=== PATIENT | male | born 1955 | race Two or more races ===

== ENCOUNTER 2021-07-17 17:35 | Inpatient (IN) | payer MEDICARE, MEDICAID ==
[~2021-07-17] VITALS: Ht 175.3 cm; Wt 97.2 kg
[2021-07-17 20:20] LABS: Basophils # (auto) 0 10 ^3/uL (0-0.2); Eosinophils # (auto) 0 10 ^3/uL (0-0.8); Hemoglobin 13.8 g/dL (13.5-17.5); Lymphocytes % (auto) 5.1 % (10.0-50.0); Monocytes # (auto) 0.6 10 ^3/uL (0-1.3); White Blood Cell 14.7 10^3/uL (4.4-10.8)
[2021-07-17 20:22] LABS: Basophils % (auto) 0.2 % (0.0-2.0); Hematocrit 41.8 % (41.0-53.0); Lymphocytes # (auto) 0.7 10 ^3/uL (0.4-5.4); Mean Corpuscular Hemoglobin 34.6 pg (28.0-32.0); Mean Corpuscular Hgb Conc. 33.1 g/dL (32.0-36.0); Mean Corpuscular Volume 104.7 fL (80.0-100.0); Monocytes % (auto) 3.9 % (0.0-12.0); Neutrophils # (auto) 13.4 10 ^3/uL (1.6-8.6); Neutrophils % (auto) 90.8 % (37.0-80.0); Red Blood Cells 3.99 10^6/uL (4.5-5.90); Red Cell Distribution Width 15.4 % (11.8-14.3)
[2021-07-17 20:38] LABS: Albumin 2.8 g/dL (3.4-5.0); Calcium 7.6 mg/dL (8.5-10.1); Potassium 4.6 mmol/L (3.5-5.1)
[2021-07-17 20:41] LABS: Lactic Acid w/Reflex 4.3 mmol/L (0.4-2.0)
[2021-07-17 20:42] LABS: BUN/Creatinine Ratio 10.2; Bilirubin, Total 2.5 mg/dL (0.2-1.0); Total Protein 6.5 g/dL (6.4-8.2)
[2021-07-18] MEDS ORDERED: SODIUM CHLORIDE 0.9% 1,000 ML IV ONE (01:30)
[2021-07-18] MEDS ORDERED: KETOROLAC TROMETH 30 MG/ML 1ML VIAL IV ONE (01:30)
[2021-07-18 04:30] LABS: Urine Bacteria FEW /hpf (None Seen); Urine Blood 1+ /uL (Negative); Urine Hyaline Cast MOD /lpf (0 - 2); Urine Mucus FEW (None Seen); Urine WBC 14 /hpf (0 - 3)
[2021-07-18] MEDS ORDERED: ALBUMIN 25% 100 ML IV ONE (04:45)
[2021-07-18] MEDS ORDERED: MORPHINE SULFATE 4 MG/ML SYR/VIAL IV PRN (04:45)
[2021-07-18] MEDS ORDERED: ACETAMINOPHEN 325 MG TAB PO PRN (04:45)
[2021-07-18] MEDS: SODIUM CHLORIDE 0.9% 1,000 ML IV SCH ×2 (04:45→21:49)
[2021-07-18] MEDS ORDERED: ONDANSETRON HCL 4 MG/2 ML VIAL IV PRN (04:45)
[2021-07-18] MEDS ORDERED: DOCUSATE SOD 100 MG CAP PO PRN (04:45)
[2021-07-18] MEDS ORDERED: NITROGLYCERIN 0.4 MG SL TAB SL PRN (05:30)
[2021-07-18] MEDS ORDERED: MORPHINE SULFATE INJECTION 2 MG/ML SYRG IV PRN (05:30)
[2021-07-18] MEDS: metroNIDAZOLE 500MG/100ML 100 ML IV SCH ×3 (05:37→21:49)
[2021-07-18] MEDS: cefTRIAXone 1GM/50ML D5W 50 ML IV SCH (08:49)
[2021-07-18 09:03] LABS: Basophils # (auto) 0 10 ^3/uL (0-0.2); Eosinophils # (auto) 0 10 ^3/uL (0-0.8); Hematocrit 31.2 % (41.0-53.0); Monocytes # (auto) 0.2 10 ^3/uL (0-1.3)
[2021-07-18 09:05] LABS: Basophils % (auto) 0.2 % (0.0-2.0); Eosinophils % (auto) 0.2 % (0.0-7.0); Hemoglobin 10.5 g/dL (13.5-17.5); Lymphocytes # (auto) 0.5 10 ^3/uL (0.4-5.4); Lymphocytes % (auto) 8.1 % (10.0-50.0); Mean Corpuscular Hemoglobin 35.3 pg (28.0-32.0); Mean Corpuscular Hgb Conc. 33.7 g/dL (32.0-36.0); Mean Corpuscular Volume 104.8 fL (80.0-100.0); Monocytes % (auto) 2.9 % (0.0-12.0); Neutrophils # (auto) 5.3 10 ^3/uL (1.6-8.6); Neutrophils % (auto) 88.6 % (37.0-80.0); Red Blood Cells 2.97 10^6/uL (4.5-5.90); Red Cell Distribution Width 15.3 % (11.8-14.3)
[2021-07-18] MEDS: ASPirin 81 mg TAB PO SCH (10:58)
[2021-07-18] MEDS: FAMOTIDINE (10MG/ML) 2ML VL IV SCH (10:58)
[2021-07-18] MEDS: HYDROcodone-ACET 5/325MG TAB PO PRN ×2 (11:26→21:09)
[2021-07-18 11:58] LABS: Alanine Aminotransferase 33 U/L (16-61); Alkaline Phosphatase 145 U/L (45-117); Anion Gap 9 (5-15); Aspartate Aminotransferase 37 U/L (15-37); BUN/Creatinine Ratio 12.4; Bilirubin, Total 1.4 mg/dL (0.2-1.0); Blood Urea Nitrogen 26 mg/dL (7-18); Calcium 7.2 mg/dL (8.5-10.1); Carbon Dioxide 21 mmol/L (21-32); Chloride 105 mmol/L (98-107); GFR African American 41 mL/min; GFR Non-African American 34 mL/min; Glucose 108 mg/dL (74-106); Potassium 4.2 mmol/L (3.5-5.1); Sodium 135 mmol/L (136-145)
[2021-07-18 11:59] LABS: Albumin 2.3 g/dL (3.4-5.0); Total Protein 6.1 g/dL (6.4-8.2)
[2021-07-18 16:40] VITALS: BP 98/58
[2021-07-18 17:00] VITALS: BP 98/68
[2021-07-18 20:00] VITALS: BP 116/70
[2021-07-18 22:09] LABS: Urine Bacteria FEW /hpf (None Seen); Urine Blood 1+ /uL (Negative); Urine WBC 9 /hpf (0 - 3)
[2021-07-18 23:15] LABS: Protein, Urine 52.5 mg/dL (0.0-11.9)
[2021-07-19 05:00] VITALS: BP 127/79
[2021-07-19 06:20] LABS: Basophils # (auto) 0 10 ^3/uL (0-0.2); Basophils % (auto) 0.1 % (0.0-2.0); Hemoglobin 10.5 g/dL (13.5-17.5); Lymphocytes # (auto) 0.4 10 ^3/uL (0.4-5.4); Monocytes # (auto) 0.3 10 ^3/uL (0-1.3); Neutrophils # (auto) 3.6 10 ^3/uL (1.6-8.6); Neutrophils % (auto) 82.5 % (37.0-80.0)
[2021-07-19] MEDS: metroNIDAZOLE 500MG/100ML 100 ML IV SCH (06:23)
[2021-07-19 06:24] LABS: Eosinophils # (auto) 0 10 ^3/uL (0-0.8); Hematocrit 30.4 % (41.0-53.0); Lymphocytes % (auto) 9.8 % (10.0-50.0); Mean Corpuscular Hgb Conc. 34.6 g/dL (32.0-36.0); Mean Corpuscular Volume 104.2 fL (80.0-100.0); Monocytes % (auto) 6.6 % (0.0-12.0); Red Blood Cells 2.91 10^6/uL (4.5-5.90); White Blood Cell 4.4 10^3/uL (4.4-10.8)
[2021-07-19 09:00] VITALS: BP 107/66
[2021-07-19 09:55] LABS: Albumin 2.1 g/dL (3.4-5.0); BUN/Creatinine Ratio 15.9; Calcium 7.2 mg/dL (8.5-10.1)
[2021-07-19 09:58] LABS: Bilirubin, Total 0.6 mg/dL (0.2-1.0); Total Protein 4.8 g/dL (6.4-8.2)
[2021-07-19] MEDS: FAMOTIDINE (10MG/ML) 2ML VL IV SCH (10:02)
[2021-07-19] MEDS: cefTRIAXone 1GM/50ML D5W 50 ML IV SCH (10:02)
[2021-07-19] MEDS: ASPirin 81 mg TAB PO SCH (10:03)
[2021-07-19] MEDS: HYDROcodone-ACET 5/325MG TAB PO PRN ×3 (10:03→23:55)
[2021-07-19 13:00] VITALS: BP 98/65
[2021-07-19 17:00] VITALS: BP 106/65
[2021-07-19] MEDS: SODIUM CHLORIDE 0.9% 1,000 ML IV SCH ×2 (18:02→19:43)
[2021-07-19 20:00] VITALS: BP 96/60
[2021-07-19 22:00] VITALS: BP 96/60
[2021-07-20] VITALS (7 sets, daily range): BP systolic 91–108; BP diastolic 60–71
[2021-07-20 06:58] LABS: Basophils # (auto) 0 10 ^3/uL (0-0.2); Basophils % (auto) 0.2 % (0.0-2.0); Eosinophils # (auto) 0.1 10 ^3/uL (0-0.8); Lymphocytes # (auto) 0.6 10 ^3/uL (0.4-5.4); Monocytes # (auto) 0.4 10 ^3/uL (0-1.3); Neutrophils # (auto) 2.6 10 ^3/uL (1.6-8.6); White Blood Cell 3.7 10^3/uL (4.4-10.8)
[2021-07-20 07:08] LABS: Eosinophils % (auto) 2.2 % (0.0-7.0); Hematocrit 31.8 % (41.0-53.0); Hemoglobin 10.9 g/dL (13.5-17.5); Lymphocytes % (auto) 16.6 % (10.0-50.0); Mean Corpuscular Hemoglobin 35.4 pg (28.0-32.0); Mean Corpuscular Hgb Conc. 34.4 g/dL (32.0-36.0); Mean Corpuscular Volume 102.9 fL (80.0-100.0); Monocytes % (auto) 11.3 % (0.0-12.0); Neutrophils % (auto) 69.7 % (37.0-80.0); Nucleated Red Blood Cells % 0.1 %; Red Blood Cells 3.09 10^6/uL (4.5-5.90); Red Cell Distribution Width 15.2 % (11.8-14.3)
[2021-07-20 07:09] LABS: Calcium 7.1 mg/dL (8.5-10.1); Potassium 3.1 mmol/L (3.5-5.1)
[2021-07-20 07:13] LABS: BUN/Creatinine Ratio 19.1; Bilirubin, Total 0.5 mg/dL (0.2-1.0); Total Protein 4.8 g/dL (6.4-8.2)
[2021-07-20 07:19] LABS: % Iron Saturation 15.7 % (20-55)
[2021-07-20 07:39] LABS: Ferritin 883.2 ng/mL (10-322)
[2021-07-20] MEDS ORDERED: POTASSIUM CHL 20 Meq TABLET PO ONE (09:15)
[2021-07-20] MEDS: FAMOTIDINE (10MG/ML) 2ML VL IV SCH (10:04)
[2021-07-20] MEDS: cefTRIAXone 1GM/50ML D5W 50 ML IV SCH (10:04)
[2021-07-20] MEDS: ASPirin 81 mg TAB PO SCH (10:04)
[2021-07-20] MEDS: HYDROcodone-ACET 5/325MG TAB PO PRN ×2 (10:04→19:50)
[2021-07-20] MEDS: SODIUM CHLORIDE 0.9% 1,000 ML IV SCH (23:25)
[2021-07-21] MEDS: SODIUM CHLORIDE 0.9% 1,000 ML IV SCH (03:10)
[2021-07-21 05:24] VITALS: BP 110/71
[2021-07-21 08:00] VITALS: BP 125/77
[2021-07-21 09:03] LABS: BUN/Creatinine Ratio 17.2; Calcium 7.4 mg/dL (8.5-10.1)
[2021-07-21 09:05] LABS: Potassium 3.9 mmol/L (3.5-5.1)
[2021-07-21] MEDS: ASPirin 81 mg TAB PO SCH (09:36)
[2021-07-21] MEDS: FAMOTIDINE (10MG/ML) 2ML VL IV SCH (09:36)
[2021-07-21] MEDS: cefTRIAXone 1GM/50ML D5W 50 ML IV SCH (09:36)
[2021-07-21] MEDS: HYDROcodone-ACET 5/325MG TAB PO PRN (09:38)
[2021-07-21 12:00] VITALS: BP 100/62
[2021-07-21 13:33] LABS: Hepatitis B Core IgM Negative
[2021-07-21 13:34] LABS: Hepatitis C Antibody Negative (Negative)
[2021-07-24 13:56] LABS: Hepatitis A Ab IgM Negative
== END 2021-07-21 14:40 | disposition home or self-care (01) | DRG 693 ==
LOC: EDBD 17:35 → ER 17:35 → OVERFLOW 07-18 05:16 → WEST WING 07-18 15:06
PROVIDERS: ADMIT Nurse Practitioner Family; ATTEND Internal Medicine Geriatric Medicine
DX: N20.0 Calculus of kidney (principal); N17.0 Acute kidney failure with tubular necrosis; N39.0 Urinary tract infection, site not specified; R78.81 Bacteremia; E44.1 Mild protein-calorie malnutrition; E87.1 Hypo-osmolality and hyponatremia; D69.6 Thrombocytopenia, unspecified; E88.09 Other disorders of plasma-protein metabolism, not elsewhere classified; T39.395A Adverse effect of other nonsteroidal anti-inflammatory drugs [NSAID], initial encounter; N18.30 Chronic kidney disease, stage 3 unspecified; B96.89 Other specified bacterial agents as the cause of diseases classified elsewhere; Z20.822 Contact with and (suspected) exposure to COVID-19; B96.20 Unspecified Escherichia coli [E. coli] as the cause of diseases classified elsewhere; G89.29 Other chronic pain; Z96.659 Presence of unspecified artificial knee joint; Z98.1 Arthrodesis status; Z98.84 Bariatric surgery status; Z90.49 Acquired absence of other specified parts of digestive tract; Y92.89 Other specified places as the place of occurrence of the external cause; Z68.29 Body mass index [BMI] 29.0-29.9, adult
CPT/HCPCS: 36415; 74176; 76775; 80048; 80053; 80074; 81001; 82570; 82607; 82728; 83010; 83036; 83540; 83550; 83605; 83615; 84156; 84300; 84436; 84443; 84484; 85025; 85045; 86880; 87040; 87077; 87086; 87186; 87426; 93005; 96361; 96365; 96375; G0378; J0696; J1885; J3490; P9047

== ENCOUNTER 2022-01-30 15:01 | Inpatient (IN) | payer OTHER, MEDICAID ==
[~2022-01-30] VITALS: Ht 177.8 cm; Wt 105.0 kg
[2022-01-30 15:35] LABS: Basophils # (auto) 0.1 10 ^3/uL (0-0.2); Eosinophils # (auto) 0 10 ^3/uL (0-0.8); Eosinophils % (auto) 0.2 % (0.0-7.0); Hematocrit 28.6 % (41.0-53.0); Hemoglobin 9.9 g/dL (13.5-17.5); Lymphocytes # (auto) 1.5 10 ^3/uL (0.4-5.4); Lymphocytes % (auto) 19.5 % (10.0-50.0); Mean Corpuscular Hemoglobin 33.7 pg (28.0-32.0); Mean Corpuscular Hgb Conc. 34.5 g/dL (32.0-36.0); Mean Corpuscular Volume 97.8 fL (80.0-100.0); Monocytes # (auto) 0.6 10 ^3/uL (0-1.3); Monocytes % (auto) 8.2 % (0.0-12.0); Neutrophils # (auto) 5.5 10 ^3/uL (1.6-8.6); Neutrophils % (auto) 71.1 % (37.0-80.0); Nucleated Red Blood Cells % 0.1 %; Red Blood Cells 2.92 10^6/uL (4.5-5.90); Red Cell Distribution Width 16.8 % (11.8-14.3); White Blood Cell 7.7 10^3/uL (4.4-10.8)
[2022-01-30] MEDS ORDERED: SODIUM CHLORIDE 0.9% 1,000 ML IV ONE ×2 (15:45→19:15)
[2022-01-30 15:51] LABS: INR 1.11 (0.9-1.15); Partial Thromboplastin Time 27.1 sec (23.6-33.0)
[2022-01-30 15:53] LABS: Albumin 2.1 g/dL (3.4-5.0); Calcium 7.7 mg/dL (8.5-10.1)
[2022-01-30 15:56] LABS: BUN/Creatinine Ratio 10.3; Bilirubin, Total 0.9 mg/dL (0.2-1.0)
[2022-01-30 16:12] LABS: Potassium 2.8 mmol/L (3.5-5.1)
[2022-01-30] MEDS ORDERED: POTASSIUM CHL 20MEQ/100ML 100 ML IV ONE (17:00)
[2022-01-30] MEDS ORDERED: POTASSIUM CHL 20 Meq TABLET PO ONE (17:00)
[2022-01-30] MEDS ORDERED: HEPARIN SODIUM (PORCINE) 5000 UNITS/ML 1ML VIAL SC ONE (22:45)
[2022-01-30] MEDS ORDERED: ONDANSETRON HCL 4 MG/2 ML VIAL IV PRN (22:45)
[2022-01-30] MEDS ORDERED: HYDROcodone-ACET 5/325MG TAB PO PRN (22:45)
[2022-01-30] MEDS ORDERED: DOCUSATE SOD 100 MG CAP PO PRN (22:45)
[2022-01-30] MEDS ORDERED: ACETAMINOPHEN 325 MG TAB PO PRN (22:45)
[2022-01-30] MEDS ORDERED: NITROGLYCERIN 0.4 MG SL TAB SL PRN (23:30)
[2022-01-30] MEDS ORDERED: MORPHINE SULFATE INJ 2 MG/ml SYRG IV PRN (23:30)
[2022-01-30] MEDS: ALBUMIN 25% 50 ML IV SCH (23:55)
[2022-01-30] MEDS: SODIUM CHLORIDE 0.9% 1,000 ML IV SCH (23:57)
[2022-01-31 01:48] VITALS: BP 93/62
[2022-01-31 03:53] LABS: Urine Bacteria NONE SEEN /hpf (None Seen); Urine Blood Negative /uL (Negative); Urine Hyaline Cast FEW /lpf (0 - 2); Urine Specific Gravity 1.021 (1.001-1.035); Urine WBC 4 /hpf (0 - 3)
[2022-01-31 05:00] VITALS: BP 90/59
[2022-01-31] MEDS ORDERED: VANCOMYCIN PER PHARMACY 0 MG IV SCH (05:30)
[2022-01-31] MEDS ORDERED: VANCOMYCIN 1GM/250ML 250 ML IV ONE (05:30)
[2022-01-31] MEDS ORDERED: HEPARIN SODIUM (PORCINE) 5000 UNITS/ML 1ML VIAL SC SCH (06:00)
[2022-01-31] MEDS: ALBUMIN 25% 50 ML IV SCH (06:38)
[2022-01-31 07:37] LABS: Basophils # (auto) 0 10 ^3/uL (0-0.2); Basophils % (auto) 0.3 % (0.0-2.0); Eosinophils # (auto) 0 10 ^3/uL (0-0.8); Eosinophils % (auto) 0.7 % (0.0-7.0); Hematocrit 23.2 % (41.0-53.0); Hemoglobin 8.1 g/dL (13.5-17.5); Lymphocytes # (auto) 1.4 10 ^3/uL (0.4-5.4); Lymphocytes % (auto) 22.9 % (10.0-50.0); Mean Corpuscular Hemoglobin 34.4 pg (28.0-32.0); Mean Corpuscular Hgb Conc. 34.9 g/dL (32.0-36.0); Mean Corpuscular Volume 98.5 fL (80.0-100.0); Monocytes # (auto) 0.5 10 ^3/uL (0-1.3); Neutrophils # (auto) 4.2 10 ^3/uL (1.6-8.6); Neutrophils % (auto) 68.1 % (37.0-80.0); Nucleated Red Blood Cells % 0.1 %; Red Blood Cells 2.36 10^6/uL (4.5-5.90); Red Cell Distribution Width 16.2 % (11.8-14.3); White Blood Cell 6.2 10^3/uL (4.4-10.8)
[2022-01-31 07:43] LABS: Albumin 2.1 g/dL (3.4-5.0); BUN/Creatinine Ratio 11.1; Calcium 7.5 mg/dL (8.5-10.1)
[2022-01-31 07:46] LABS: Bilirubin, Total 0.9 mg/dL (0.2-1.0); Total Protein 5.2 g/dL (6.4-8.2)
[2022-01-31 07:56] LABS: Potassium 2.9 mmol/L (3.5-5.1)
[2022-01-31 09:00] VITALS: BP 88/58
[2022-01-31] MEDS: FAMOTIDINE (10MG/ML) 2ML VL IV SCH ×2 (09:36→22:25)
[2022-01-31] MEDS ORDERED: ERTAPENEM SOD INJ 1 GM in SODIUM CHL 0.9% 50 ML IV ONE (11:00)
[2022-01-31] MEDS ORDERED: POTASSIUM CHL 20 Meq TABLET PO ONE (11:00)
[2022-01-31 13:00] VITALS: BP 98/67
[2022-01-31 13:16] LABS: % Iron Saturation 19.2 % (20-55)
[2022-01-31] MEDS: SODIUM CHLORIDE 0.9% 1,000 ML IV SCH (15:24)
[2022-01-31 17:00] VITALS: BP 85/60
[2022-01-31 22:00] VITALS: BP 90/57
[2022-02-01 05:00] VITALS: BP 96/66
[2022-02-01 07:18] LABS: Basophils # (auto) 0 10 ^3/uL (0-0.2); Basophils % (auto) 0.4 % (0.0-2.0); Eosinophils # (auto) 0 10 ^3/uL (0-0.8); Eosinophils % (auto) 0.9 % (0.0-7.0); Hematocrit 22.5 % (41.0-53.0); Hemoglobin 7.9 g/dL (13.5-17.5); Lymphocytes # (auto) 1.3 10 ^3/uL (0.4-5.4); Lymphocytes % (auto) 26.5 % (10.0-50.0); Mean Corpuscular Hemoglobin 34.6 pg (28.0-32.0); Mean Corpuscular Volume 98.9 fL (80.0-100.0); Monocytes # (auto) 0.5 10 ^3/uL (0-1.3); Monocytes % (auto) 10.5 % (0.0-12.0); Neutrophils # (auto) 2.9 10 ^3/uL (1.6-8.6); Neutrophils % (auto) 61.7 % (37.0-80.0); Red Blood Cells 2.27 10^6/uL (4.5-5.90); Red Cell Distribution Width 16.4 % (11.8-14.3); White Blood Cell 4.7 10^3/uL (4.4-10.8)
[2022-02-01 07:36] LABS: Calcium 7.3 mg/dL (8.5-10.1); Potassium 3.4 mmol/L (3.5-5.1)
[2022-02-01] MEDS: SODIUM CHLORIDE 0.9% 1,000 ML IV SCH ×2 (08:48→12:00)
[2022-02-01 09:00] VITALS: BP 82/46
[2022-02-01] MEDS: ERTAPENEM SOD INJ 1 GM in SODIUM CHL 0.9% 50 ML IV SCH (09:05)
[2022-02-01] MEDS: FAMOTIDINE (10MG/ML) 2ML VL IV SCH ×2 (09:05→22:15)
[2022-02-01 13:00] VITALS: BP 91/60
[2022-02-01 17:00] VITALS: BP 90/63
[2022-02-01 22:00] VITALS: BP 90/58
[2022-02-02] MEDS: SODIUM CHLORIDE 0.9% 1,000 ML IV SCH ×2 (00:08→14:18)
[2022-02-02 05:00] VITALS: BP 89/58
[2022-02-02 06:00] LABS: White Blood Cell 4.1 10^3/uL (4.4-10.8)
[2022-02-02 06:04] LABS: Hematocrit 23.1 % (41.0-53.0); Mean Corpuscular Hemoglobin 34.4 pg (28.0-32.0); Mean Corpuscular Hgb Conc. 34.6 g/dL (32.0-36.0); Mean Corpuscular Volume 99.3 fL (80.0-100.0); Red Blood Cells 2.32 10^6/uL (4.5-5.90); Red Cell Distribution Width 16.2 % (11.8-14.3)
[2022-02-02 06:21] LABS: Basophils % (manual) 0 (0.0-2.0); Blast Cells 0; Myelocytes % 0; Promyelocytes % 0; Reactive Lymphocytes 0
[2022-02-02 06:22] LABS: Albumin 1.7 g/dL (3.4-5.0); Calcium 7.2 mg/dL (8.5-10.1); Potassium 3.5 mmol/L (3.5-5.1)
[2022-02-02 06:27] LABS: BUN/Creatinine Ratio 12.5; Bilirubin, Total 0.4 mg/dL (0.2-1.0); Total Protein 4.6 g/dL (6.4-8.2)
[2022-02-02 07:52] LABS: Band Neutrophils % (manual) 2; Eosinophils % (manual) 1 (0-7); Lymphocytes % (manual) 37 (10.0-50.0); Metamyelocytes % 1; Monocytes % (manual) 9 (0-12)
[2022-02-02 09:00] VITALS: BP 90/63
[2022-02-02] MEDS: ERTAPENEM SOD INJ 1 GM in SODIUM CHL 0.9% 50 ML IV SCH (09:40)
[2022-02-02] MEDS: FAMOTIDINE (10MG/ML) 2ML VL IV SCH ×2 (09:41→22:20)
[2022-02-02] MEDS ORDERED: MIDODRINE HCL 10 MG TAB PO ONE (11:15)
[2022-02-02] MEDS ORDERED: HYDROcodone-ACET 5/325MG TAB PO PRN (11:15)
[2022-02-02] MEDS: MIDODRINE HCL 10 MG TAB PO SCH ×2 (12:26→17:52)
[2022-02-02 13:00] VITALS: BP 81/55
[2022-02-02 21:30] VITALS: BP 91/63
[2022-02-03] MEDS: SODIUM CHLORIDE 0.9% 1,000 ML IV SCH ×2 (00:35→13:55)
[2022-02-03 05:00] VITALS: BP 99/64
[2022-02-03] MEDS: MIDODRINE HCL 10 MG TAB PO SCH ×3 (06:01→18:00)
[2022-02-03] MEDS ORDERED: cefTRIAXone 1GM/50ML D5W 50 ML IV SCH (09:00)
[2022-02-03 13:00] VITALS: BP 90/61
== END 2022-02-03 19:30 | disposition short-term general hospital (02) | DRG 871 ==
LOC: EDBD 15:01 → ER 15:01 → TELE-CENTR 23:30
PROVIDERS: ADMIT Nurse Practitioner Family; ATTEND Internal Medicine
DX: A41.51 Sepsis due to Escherichia coli [E. coli] (principal); I21.4 Non-ST elevation (NSTEMI) myocardial infarction; N39.0 Urinary tract infection, site not specified; E61.1 Iron deficiency; E66.9 Obesity, unspecified; E87.6 Hypokalemia; E88.09 Other disorders of plasma-protein metabolism, not elsewhere classified; Z20.822 Contact with and (suspected) exposure to COVID-19; I12.9 Hypertensive chronic kidney disease with stage 1 through stage 4 chronic kidney disease, or unspecified chronic kidney disease; N18.30 Chronic kidney disease, stage 3 unspecified; Z83.3 Family history of diabetes mellitus; Z87.442 Personal history of urinary calculi; Z90.49 Acquired absence of other specified parts of digestive tract; Z68.33 Body mass index [BMI] 33.0-33.9, adult; I95.9 Hypotension, unspecified
CPT/HCPCS: 36415; 71045; 74176; 80048; 80053; 81001; 82270; 82533; 83036; 83540; 83550; 83605; 84484; 85007; 85025; 85027; 85610; 85730; 87040; 87077; 87086; 87186; 93005; 93306; 96361; 96365; 96372; 99291; G0378; J0696; J1335; J3480; J3490

== ENCOUNTER 2025-05-04 14:18 | Emergency (ER) | payer MEDICAID, OTHER ==
[~2025-05-04] VITALS: Ht 177.8 cm; Wt 85.4 kg
[2025-05-04 14:22] VITALS: BP 119/103; TEMP 97.9
[2025-05-04 14:32] VITALS: PULSE 129
--- NOTE | 2025-05-04 15:01 | ED.PDOC ---
SOB-HPI HPI Comments This is a 69-year-old male with past medical history of low back pain came to the hospital due to shortness of breaths since 1 month. ED scan shortness of breath constant, which worsened with moving around and lying on the bed. Also reports of dizziness and left-sided abdominal discomfort. He denies fever, chest pain, headache, or any motor/sensory deficits. Home meds: Gabapentin Chief Complaint: Shortness of Breath Time Seen by MD: 14:29 Primary Care Provider: Jose Mode of Arrival: Ambulatory Past Medical History PAST MEDICAL HISTORY: Kidney Stones Surgical History: Cholecystectomy Family History Family History: Family hx of DM Social History Smoker: Non-Smoker Alcohol: Occasionally Drugs: Denies Drug Use Lives In: Home Physical Exam General Appearance: No Apparent Distress, Normal HEENT: Normal ENT Inspection, Pharynx Normal, TMs Normal Neck: Full Range of Motion, Non-Tender, Normal, Normal Inspection Respiratory: Chest Non-Tender, Lungs Clear, No Accessory Muscle Use, No Respiratory Distress, Normal Breath Sounds Cardiovascular: No Edema, No JVD, No Murmur, No Gallop, Normal Peripheral Pulses, Regular Rate/Rhythm Breast Exam: Deferred Gastrointestinal: No Organomegaly, Non Tender, No Pulsatile Mass, Normal Bowel Sounds, Soft Genitalia: Deferred Pelvic: Deferred Rectal: Deferred Extremities: No calf tenderness, Normal capillary refill, Normal inspection, Normal range of motion, Non-tender, No pedal edema Musculoskeletal : Apperance: Normal Neurologic: Alert, environmental attorney II-XII nml as Tested, No Motor Deficits, Normal Affect, Normal Mood, No Sensory Deficits Cerebellar Function: Normal Reflexes: Normal Skin: Dry, Normal Color, Warm Lymphatic: No Adenopathy Was a procedure done? Was a procedure done?: No Differential Dx Differential Diagnosis: Other X-Ray, Labs, Meds, VS Vital Signs Date Time Temp Pulse Resp B/P (MAP) Pulse Ox O2 Delivery O2 Flow Rate FiO2 05/04/25 15:40 20 100 Room Air* 0 21 05/04/25 14:32 129 05/04/25 14:22 97.9 131 22 119/103 100 97.9 Lab Test 05/04/25 14:47 Range/Units White Blood Count 5.2 4.4-10.8 10^3/uL Red Blood Count 3.87 L 4.5-5.90 10^6/uL Hemoglobin 14.0 13.5-17.5 g/dL Hematocrit 41.5 41.0-53.0 % Mean Corpuscular Volume 107.0 H 80.0-100.0 fL Mean Corpuscular Hemoglobin 36.2 H 28.0-32.0 pg Mean Corpuscular Hemoglobin Concent 33.8 32.0-36.0 g/dL Red Cell Distribution Width 18.0 H 11.8-14.3 % Platelet Count 62 L 140-450 10^3/uL Mean Platelet Volume 9.2 6.9-10.8 fL Neutrophils (%) (Auto) 60.2 37.0-80.0 % Lymphocytes (%) (Auto) 31.1 10.0-50.0 % Monocytes (%) (Auto) 7.2 0.0-12.0 % Eosinophils (%) (Auto) 1.1 0.0-7.0 % Basophils (%) (Auto) 0.4 0.0-2.0 % Neutrophils # (Auto) 3.1 1.6-8.6 10 ^3/uL Lymphocytes # (Auto) 1.6 0.4-5.4 10 ^3/uL Monocytes # (Auto) 0.4 0-1.3 10 ^3/uL Eosinophils # (Auto) 0.1 0-0.8 10 ^3/uL Basophils # (Auto) 0 0-0.2 10 ^3/uL Nucleated Red Blood Cells 0.2 % Sodium Level 135 L 136-145 mmol/L Potassium Level 4.0 3.5-5.1 mmol/L Chloride Level 99 98-107 mmol/L Carbon Dioxide Level 20 20-31 mmol/L Anion Gap 16 H 5-15 Blood Urea Nitrogen 20 9-23 mg/dL Creatinine 1.62 H 0.700-1.30 mg/dL Glomerular Filtration Rate Calc 46 >90 mL/min BUN/Creatinine Ratio 12.3 10.0-20.0 Serum Glucose 122 H 74-106 mg/dL Calcium Level 8.7 8.7-10.4 mg/dL Total Bilirubin 2.0 H 0.2-1.0 mg/dL Direct Bilirubin 0.9 H <0.3 mg/dL Aspartate Amino Transferase (AST) 62 H 13-40 U/L Alanine Aminotransferase (ALT) 26 7-40 U/L Alkaline Phosphatase 123 H 46-116 U/L Troponin I High Sensitivity 6 </=54 ng/L B-Type Natriuretic Peptide 93.36 0-100 pg/mL Total Protein 6.7 5.7-8.2 g/dL Albumin 3.6 3.2-4.8 g/dL Current Medications Medications (Trade) Dose Ordered Sig/Grant Route Start Time Stop Time Status Last Admin Ipratropium [place] (Atrovent Medneb) 0.5 mg ONCE ONCE NEB 05/04/25 14:45 05/04/25 15:28 DC 05/04/25 15:40 Albuterol (Ventolin Medneb) 2.5 mg ONCE ONCE NEB 05/04/25 14:45 05/04/25 15:28 DC 05/04/25 15:40 Time of 1ST Reevaluation: 19:24 Reevaluation 1ST: Improved Patient Education/Counseling: Diagnosis, Treatment, Prognosis, Need For Follow Up Family Education/Counseling: Diagnosis, Treatment, Prognosis, Need For Follow Up Comments Patient came to the hospital due to shortness of breath. Patient was vitally stable. Physical examination was nonsignificant. Chest was clear. EKGs showed normal sinus rhythm with no significant ST or T-wave changes. Chest x-ray performed, showed no significant intrathoracic abnormalities. CBC within normal limits See BNP within normal. Serial trop I within normal width. Patient was nebulized with ipratropium and albuterol On subsequent checkup the patient was feeling better. Patient discharged home. Follow up with the PCP. Patient was sent albuterol inhaler and the Protonix for 7 days. SEPSIS Sepsis Screen Date sepsis recognized/suspect: May 04, 2025 Time Sepsis recognized/suspect: 1424 Recent Procedure: No On Antibiotic Therapy: No Respiratory Rate >20: Yes Heart Rate >90: Yes Temp<36 C (96.8 F) or >38.3 C: No SBP <90 or MAP <65 mmHG: No New Acute Mental Status Change: No Is the patient on CPAP, BIPAP,: No Physician Orders Chest Portable (05/04/25 14:26) Vital Signs Date Time Temp Pulse Resp B/P (MAP) Pulse Ox O2 Delivery O2 Flow Rate FiO2 05/04/25 15:40 20 100 Room Air* 0 21 05/04/25 14:32 129 05/04/25 14:22 97.9 131 22 119/103 100 97.9 Laboratory Tests Test 05/04/25 14:47 White Blood Count 5.2 10^3/uL (4.4-10.8) Medications Medications Dose Ordered Sig/Grant Route Start Time Stop Time Status Last Admin Dose Admin Albuterol 2.5 mg ONCE ONCE NEB 05/04/25 14:45 05/04/25 15:28 DC 05/04/25 15:40 Ipratropium [place] 0.5 mg ONCE ONCE NEB 05/04/25 14:45 05/04/25 15:28 DC 05/04/25 15:40 Departure 1 Departure Time of Disposition: :25 Impression: Primary Impression: Generalized weakness Additional Impression: Gastritis Disposition: 01 HOME / SELF CARE / HOMELESS Condition: Fair e-Prescriptions Unable to Obtain Active Prescriptions or Reported Meds Critical Care Note Critical Care Time?: Yes (45 min-critical care time only) Stability Stability form required: No Heart Score Heart Score: Heart Score Response (Comments) Value History N/A 0 EKG N/A 0 Age N/A 0 Risk Factors N/A 0 Troponin N/A 0 Total 0 JACQUELINE PINZON RESDIENT May 04, 2025 15:01
--- NOTE | 2025-05-04 15:03 | ECG ---
[facility] Test Date: 2025-05-04 Test Time: 14:32:36 Pat Name: RIMA GOULD Department: ED Room: Gender: M Academic Specialist: : [id number] Requested By: NANI PATINO Order Number: [id number] Reading MD: Bam Schumacher Measurements Intervals [place] Rate: 129 P: 0 GA: 0 QRS: 160 QRSD: 128 T: 41 QT: 385 QTc: 565 Interpretive Statements Junctional tachycardia RBBB and LPFB Electronically Signed On 05-07-2025 18:48:12 PDT by Bam Schumacher Please click the below link to view image of tracing.
[2025-05-04 15:04] LABS: Chloride 99 mmol/L (98-107); Hemoglobin 14.0 g/dL (13.5-17.5); Potassium 4.0 mmol/L (3.5-5.1)
[2025-05-04 15:05] LABS: Anion Gap 16 (5-15); Carbon Dioxide 20 mmol/L (20-31)
[2025-05-04 15:06] LABS: Calcium 8.7 mg/dL (8.7-10.4); Hematocrit 41.5 % (41.0-53.0); Mean Corpuscular Hemoglobin 36.2 pg (28.0-32.0); Mean Corpuscular Volume 107.0 fL (80.0-100.0); Nucleated Red Blood Cells % 0.2 %
[2025-05-04 15:08] LABS: Sodium 135 mmol/L (136-145)
[2025-05-04] MEDS ORDERED: ALBUTEROL SULF 2.5 MG/0.5ML(0.5%) NEB SOLN ONE (15:09)
[2025-05-04] MEDS ORDERED: IPRATROPIUM BROM 0.5 MG/2.5ML INH SOL ONE (15:09)
[2025-05-04 15:10] LABS: BUN/Creatinine Ratio 12.3 (10.0-20.0); Blood Urea Nitrogen 20 mg/dL (9-23)
[2025-05-04 15:11] LABS: Glucose 122 mg/dL (74-106)
--- NOTE | 2025-05-04 15:11 | DVH ---
CHEST RADIOGRAPH Indication: SOB Technique: Single frontal view of the chest was obtained Comparison: XR CHEST 1 VIEW on DOS: 02/11/23, CT ANGIO CHEST - PULMONARY on DOS: 06/19/22, XR CHEST 1 V IEW on DOS: 06/19/22 FINDINGS: Lines and Tubes: None Lungs: No focal consolidation. Pleura: No effusion. No pneumothorax. Cardiomediastinal contours: Unremarkable Bones: No acute osseous abnormality. IMPRESSION: 1. No acute cardiopulmonary disease.
[2025-05-04 15:20] LABS: Alanine Aminotransferase 26.0 U/L (7-40); Albumin 3.6 g/dL (3.2-4.8); Total Protein 6.7 g/dL (5.7-8.2)
[2025-05-04 15:21] LABS: Alkaline Phosphatase 123.0 U/L (46-116); Bilirubin, Direct 0.9 mg/dL (<0.3); Bilirubin, Total 2.0 mg/dL (0.2-1.0)
[2025-05-04 15:40] VITALS: RESP 20; O2SAT 100
[2025-05-04] MEDS: ALBUTEROL SULF 2.5 MG/0.5ML(0.5%) NEB SOLN NEB ONE (15:40)
[2025-05-04] MEDS: IPRATROPIUM BROM 0.5 MG/2.5ML INH SOL NEB ONE (15:40)
== END 2025-05-04 21:47 | disposition home or self-care (01) ==
LOC: ER 14:18
DX: K29.70 Gastritis, unspecified, without bleeding (principal); R53.1 Weakness; Z90.49 Acquired absence of other specified parts of digestive tract
CPT/HCPCS: 36415; 71045; 80048; 80076; 83880; 84484; 85025; 93005; 94640